=== PATIENT | male | born 1990 | race Caucasian/White ===

== ENCOUNTER 2017-03-05 21:29 | Emergency (ER) | payer MEDICAID, OTHER ==
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
[2017-03-05 23:11] VITALS: BP 123/84; PULSE 77; RESP 14; TEMP 97.9; O2SAT 93
== END 2017-03-05 23:11 | disposition home or self-care (01) ==
DX: S09.90XA Unspecified injury of head, initial encounter (principal); Y09 Assault by unspecified means